=== PATIENT | male | born 2000 | race Caucasian/White ===

== ENCOUNTER → 2018-06-27 15:14 | Emergency (ER) | payer OTHER ==
[2018-06-27 15:54] VITALS: BP 119/77
--- NOTE | 2018-06-30 01:20 | PN ---
Progress Note - Progress Note Date of Service: 06/30/18 Note: This pt left without being seen.
== END | disposition left against medical advice (07) ==
LOC: ED 15:14
DX: S09.90XA Unspecified injury of head, initial encounter (principal); X58.XXXA Exposure to other specified factors, initial encounter; Y92.9 Unspecified place or not applicable; Z53.21 Procedure and treatment not carried out due to patient leaving prior to being seen by health care provider

== ENCOUNTER 2018-06-28 12:29 | Emergency (ER) | payer SELFPAY ==
--- NOTE | 2018-06-28 12:52 | ED ---
Headache - HPI Summary HPI Summary: This patient is a 18 year old M presenting to [facility] with a chief complaint of RAINEY after head injury that began on 06-25-18. The patient rates the pain 2/10 in severity, describes it as throbbing, and being worse in the morning. Symptoms aggravated by nothing. Symptoms alleviated by spontaneous resolution throughout the day. Patient reports photophobia, 2 episodes of epistaxis, as well as nausea. Patient denies ear discharge and visual changes. Pt states on 06-25-18 he was getting something out of his closet when a heavy bin fell. In an attempt to dodge the falling bin, he hit the back of his head on the corner of his closet. The bin did not hit him. He hit his right posterior occiput and it bled for 20 minutes but has stopped, he states this area is vineyard tender to palpation. He states he called [facility] after he began having increasing RAINEY and fuzzy vision with laptop use over 2 hours, and they suggested he come to the ED. Pt denied need for a work note. He does not take daily medications besides melatonin at night. Used inhaler for asthma over 6 days ago. NKDA - History Of Current Complaint Chief Complaint: EDHeadache Stated Complaint: HEAD INJURY Time Seen by Provider: 06/28/18 12:39 Hx Obtained From: Patient Onset/Duration: Sudden Onset, Started days ago, Still Present Initially Headache Was: Moderate Currently Pain Is: Current Pain Scale(0-10)= - 2 Timing: Constant Character: Throbbing Location of Headache: Occipital - right posterior Aggravating Factor: Nothing Allevating Factors: Other (Noted In Comments) - spontaneous resolution throughout the day Associated Signs And Symptoms: Negative - ear discharge and visual changes, Other (Noted In Comments) - epistaxis - Allergies/Home Medications Allergies/Adverse Reactions: Allergies Allergy/AdvReac Type Severity Reaction Status Date / Time No Known Allergies Allergy Verified 06/27/18 15:50 PMH/Surg Hx/FS Hx/Imm Hx Previously Healthy: No Endocrine/Hematology History: Denies: Hx Diabetes Respiratory History: Reports: Hx Asthma, Hx Pneumonia Neurological History: Denies: Hx CVA - Surgical History Surgery Procedure, Year, and Place: NONE Infectious Disease History: No Infectious Disease History: Denies: Traveled Outside the [place] in Last 30 Days - Family History Known Family History: Positive: Diabetes Negative: Other - CVA - Social History Occupation: Employed Part-time, Student Lives: Dormitory/Roommates Alcohol Use: Weekly Hx Substance Use: No Substance Use Type: Reports: None Hx Tobacco Use: No Smoking Status (MU): Never Smoked Tobacco Review of Systems Constitutional: Negative Positive: Photophobia. Negative: Blurred Vision, Drainage Positive: Epistaxis Positive: Nausea Positive: Other - pinpoint scab right posterior occiput, healed, not bleeding Positive: Headache Psychological: Normal All Other Systems Reviewed And Are Negative: Yes Physical Exam - Summary Physical Exam Summary: Appearance: Well-appearing, mild pain distress, well-nourished Skin: Warm, color reflects adequate perfusion, dry Head:Tender to palpation in right posterior occiput, pinpoint scab right posterior occiput, dry Eyes: Conjunctiva clear, EOMI, PERRL 2mm reactive and no nystagmus ENT: Normal inspection Neck: Supple, no nodes, no JVD Respiratory: Lungs clear, normal breath sounds, no respiratory distress Cardio: RRR, No murmur, pulses normal, brisk capillary refill Abdomen: Soft, nontender Bowel sounds: Present Musculoskeletal: Strength Intact/ROM intact, no calf tenderness, no edema. Psychological: Normal Neuro: A&O x3, CN II-XII intact, motor function 5/5, sensation intact, cerebellar normal Triage Information Reviewed: Yes Vital Signs On Initial Exam: Initial Vitals Temp Pulse Resp BP Pulse Ox 97.4 F 94 16 141/87 98 06/28/18 12:34 06/28/18 12:34 06/28/18 12:34 06/28/18 12:34 06/28/18 12:34 Vital Signs Reviewed: Yes - Kyle Coma Scale Best Eye Response: 4 - Spontaneous Best Motor Response: 6 - Obeys Commands Best Verbal Response: 5 - Oriented Coma Scale Total: 15 Diagnostics - Vital Signs Vital Signs Temp Pulse Resp BP Pulse Ox 06/28/18 12:34 97.4 F 94 16 141/87 98 - Laboratory Lab Statement: Any lab studies that have been ordered have been reviewed, and results considered in the medical decision making process. - CT CT Brain CT Interpretation Completed By: Radiologist - NO ACUTE INTRACRANIAL PATHOLOGY. ED physician has reviewed this radiology report. Re-Evaluation - Re-Evaluation First Eval Re-Evaluation Time: 13:40 Change: Unchanged Comment: No new sxs. Pt given results of CT. Agrees to discharge. Headache Course/Dx - Course Assessment/Plan: Pt presents with head injury with bleeding 3 days ago with continued RAINEY, nausea, difficulty focusing, epistaxis and photophobia. CT Brain reveals, per radiologist, NO ACUTE INTRACRANIAL PATHOLOGY. BP reverts to normal with rest in the ED, 117 systolic on DC. Given dc instructions for concussion and this is his second concussion in his lifetime. Patient will be discharged and follow up from [facility]. The patient was informed he needed medical clearance before beginning any physical activity. He was given a medical release from class and sports. The patient is agreeable with this plan. - Diagnoses Differential Diagnosis/HQI/PQRI: Epidural Hematoma, Subdural Hematoma, Other - skull fracture, intracerebral bleed, concussion Provider Diagnoses: Head injury, closed, with concussion Discharge - Sign-Out/Discharge Documenting (check all that apply): Patient Departure - dc back to [place] - Discharge Plan Condition: Stable Disposition: HOME Patient Education Materials: Concussion (ED) Forms: *Gen. Provider Communication, *School Release, *Work Release Referrals: [facility] - Guillermo FENG [Medical Doctor] - 3 Days Additional Instructions: Your CT did not show any abnormalities. You have been diagnosed with a concussion. You will need definite clearance and an exam by another physician before you can resume physical activity. Return to the ER if you have any new or worsening symptoms. - Billing Disposition and Condition Condition: STABLE Disposition: Home - Attestation Statements Document Initiated by Harley: Yes Documenting Scribe: Michele Loja Provider For Whom Harley is Documenting (Include Credential): Dr. Lian Castro MD Scribe Attestation: Michele Jones scribed for Dr. Lian Castro MD on 06/30/18 at 2324. Scribe Documentation Reviewed: Yes Provider Attestation: The documentation as recorded by the Michele bravo accurately reflects the service I personally performed and the decisions made by me, Dr. Lian Castro MD
--- NOTE | 2018-06-28 13:15 | RAD ---
HISTORY: head injury 06/25/18 w scalp lac, still w RAINEY,N COMPARISONS: None TECHNIQUE: Multiple contiguous axial CT scans were obtained of the head without intravenous contrast. FINDINGS: HEMORRHAGE/INFARCT: There is no hemorrhage or acute infarct. MASSES/SHIFT: There is no mass or shift. EXTRA-AXIAL SPACES: There are no extra-axial fluid collections. SULCI AND VENTRICLES: The sulci and ventricles are normal in size and position for the patient's stated age. CEREBRUM: There are no focal parenchymal abnormalities. BRAINSTEM: There are no focal parenchymal abnormalities. CEREBELLUM: There are no focal parenchymal abnormalities. VESSELS: The vessels are grossly normal. PARANASAL SINUSES: The paranasal sinuses are clear. ORBITS: The orbits are unremarkable. BONES AND SOFT TISSUE: No bone or soft tissue abnormalities are noted. OTHER: None IMPRESSION: NO ACUTE INTRACRANIAL PATHOLOGY.
[2018-06-28 13:52] VITALS: BP 117/72
== END 2018-06-28 13:52 | disposition home or self-care (01) ==
LOC: ED 12:29
DX: S06.0X9A Concussion with loss of consciousness of unspecified duration, initial encounter (principal); W01.198A Fall on same level from slipping, tripping and stumbling with subsequent striking against other object, initial encounter; J45.909 Unspecified asthma, uncomplicated; Y92.9 Unspecified place or not applicable
CPT/HCPCS: 70450; 99281

== ENCOUNTER 2018-11-28 19:54 | Emergency (ER) | payer OTHER ==
[2018-11-28 22:14] LABS: ABS Basophils 0 10^3/ul (0-0.2); ABS Eosinophils 0.1 10^3/ul (0-0.6); ABS Monocytes 0.5 10^3/ul (0-0.8); ABS Neutrophils 5.5 10^3/ul (1.5-7.7); ABS Nucleated RBC 0 10^3/ul; Eosinophil % 1.4 %; Hematocrit 45 % (36-46); Hemoglobin 15.6 g/dL (14.0-18.0); Lymphocyte % 24.5 %; Mean Corpuscular HGB Conc 35 g/dL (31-36); Mean Corpuscular Hemoglobin 30 pg (27-31); Mean Corpuscular Volume 88 fL (80-94); Mean Platelet Volume 7.1 fL (7.4-10.4); Nucleated Red Blood Cells % 0.1; Platelet Count 290 10^3/uL (150-450); Red Blood Count 5.16 10^6 /uL (4.18-5.48); Red Cell Distribution Width 12 % (10.5-15); White Blood Count 8.1 10^3/uL (3.5-10.8)
[2018-11-28 22:32] LABS: Albumin 4.4 g/dL (3.2-5.2); Albumin/Globulin Ratio 1.7 (1-3); BUN/Creatinine Ratio 14.7 (8-20); C Reactive Protein 2.72 mg/L (<8.01); Calcium 9.3 mg/dL (8.6-10.3); EGFR African American 122.3 (>60); EGFR Non-African American 101.1 (>60); Globulin 2.6 g/dL (2-4); Total Bilirubin 0.3 mg/dL (0.2-1.0)
[2018-11-28] MEDS ORDERED: NS 0.9% 1000 ML** 1,000 ML IV ONE (23:28)
--- NOTE | 2018-11-28 23:35 | ED ---
GI/ HPI - HPI Summary HPI Summary: 18-year-old male presents with rectal bleed today. He states he's been trying to have a bowel movement it has just been mucous and blood. He states the past week he has been having diarrhea. He did have nausea but that has since resolved. No fevers. He admits to lower abdominal pain. no diarrhea today. No recent travel. Did not eat anything different. Has no medical conditions. No family history of ulcerative colitis or crohns. No change in the pain after a bowel movement. did have respiratory infection couple weeks ago. No flank pain. No urinary symptoms. has been having anal sex. - History of Current Complaint Chief Complaint: EDAbdPain Time Seen by Provider: 11/28/18 23:08 Stated Complaint: BLOOD AND MUCUS IN DIARRHEA PER PT Pain Intensity: 0 - Allergy/Home Medications Allergies/Adverse Reactions: Allergies Allergy/AdvReac Type Severity Reaction Status Date / Time No Known Allergies Allergy Verified 06/27/18 15:50 Home Medications: Home Medications NK [No Home Medications Reported] 11/29/18 [History Confirmed 11/29/18] PMH/Surg Hx/FS Hx/Imm Hx Endocrine/Hematology History: Denies: Hx Diabetes Respiratory History: Reports: Hx Asthma, Hx Pneumonia Neurological History: Denies: Hx CVA Psychiatric History: Reports: Other Psychiatric Issues/Disorders - trouble sleeping - Surgical History Surgery Procedure, Year, and Place: NONE - Immunization History Date of Tetanus Vaccine: utd Date of Influenza Vaccine: none Infectious Disease History: No Infectious Disease History: Reports: Traveled Outside the [place] in Last 30 Days - [place] - Family History Known Family History: Positive: Diabetes Negative: Other - CVA - Social History Alcohol Use: Weekly Hx Substance Use: No Substance Use Type: Reports: None Hx Tobacco Use: No Smoking Status (MU): Never Smoked Tobacco Review of Systems Negative: Fever Negative: Chest Pain Negative: Shortness Of Breath Positive: Abdominal Pain, Diarrhea. Negative: Vomiting, Nausea All Other Systems Reviewed And Are Negative: Yes Physical Exam Triage Information Reviewed: Yes Vital Signs On Initial Exam: Initial Vitals Temp Pulse Resp BP Pulse Ox 98.6 F 90 18 122/78 98 11/28/18 20:07 11/28/18 20:07 11/28/18 20:07 11/28/18 20:07 11/28/18 20:07 Vital Signs Reviewed: Yes Appearance: Positive: Well-Appearing Skin: Positive: Warm, Dry Head/Face: Positive: Normal Head/Face Inspection Eyes: Positive: Normal, Conjunctiva Clear ENT: Positive: Pharynx normal Respiratory/Lung Sounds: Positive: Clear to Auscultation, Breath Sounds Present Cardiovascular: Positive: Normal, RRR Abdomen Description: Positive: Soft, Other: - tenderness LLQ Bowel Sounds: Positive: Present Musculoskeletal: Positive: Normal Neurological: Positive: Normal Psychiatric: Positive: Normal Diagnostics - Vital Signs Vital Signs Temp Pulse Resp BP Pulse Ox 11/28/18 20:07 98.6 F 90 18 122/78 98 - Laboratory Lab Results: Lab Results 11/28/18 11/28/18 11/28/18 Range/Units 22:08 22:08 22:08 WBC 8.1 (3.5-10.8) 10^3/uL RBC 5.16 (4.18-5.48) 10^6 /uL Hgb 15.6 (14.0-18.0) g/dL Hct 45 (36-46) % MCV 88 (80-94) fL MCH 30 (27-31) pg MCHC 35 (31-36) g/dL RDW 12 (10.5-15) % Plt Count 290 (150-450) 10^3/uL MPV 7.1 L (7.4-10.4) fL Neut % (Auto) 68.1 % Lymph % (Auto) 24.5 % [place] % (Auto) 5.6 % Eos % (Auto) 1.4 % Baso % (Auto) 0.4 % Absolute Neuts (auto) 5.5 (1.5-7.7) 10^3/ul Absolute Lymphs (auto) 2.0 (1.0-4.8) 10^3/ul Absolute Monos (auto) 0.5 (0-0.8) 10^3/ul Absolute Eos (auto) 0.1 (0-0.6) 10^3/ul Absolute Basos (auto) 0 (0-0.2) 10^3/ul Absolute Nucleated RBC 0 10^3/ul Nucleated RBC % 0.1 Sodium 139 (135-145) mmol/L Potassium 4.0 (3.5-5.0) mmol/L Chloride 103 (101-111) mmol/L Carbon Dioxide 29 (22-32) mmol/L Anion Gap 7 (2-11) mmol/L BUN 14 (6-24) mg/dL Creatinine 0.95 (0.67-1.17) mg/dL Est GFR ( Amer) 122.3 (>60) Est GFR (Non-Af Amer) 101.1 (>60) BUN/Creatinine Ratio 14.7 (8-20) Glucose 106 H (70-100) mg/dL Lactic Acid 0.9 (0.5-2.0) mmol/L Calcium 9.3 (8.6-10.3) mg/dL Total Bilirubin 0.30 (0.2-1.0) mg/dL AST 195 H (13-39) U/L ALT 68 H (7-52) U/L Alkaline Phosphatase 68 (34-104) U/L C-Reactive Protein 2.72 (<8.01) mg/L Total Protein 7.0 (6.4-8.9) g/dL Albumin 4.4 (3.2-5.2) g/dL Globulin 2.6 (2-4) g/dL Albumin/Globulin Ratio 1.7 (1-3) Lipase 36 (11.0-82.0) U/L Result Diagrams: 11/28/18 22:08 11/28/18 22:08 Lab Statement: Any lab studies that have been ordered have been reviewed, and results considered in the medical decision making process. - CT abd CT Interpretation Completed By: Radiologist Re-Evaluation - Re-Evaluation First Eval Re-Evaluation Time: 14:00 Change: Unchanged Comment: discussed results GIGU Course/Dx - Course Course Of Treatment: 18-year-old male presents with rectal bleed today. He states he's been trying to have a bowel movement it has just been mucous and blood. He states the past week he has been having diarrhea. He did have nausea but that has since resolved. No fevers. He admits to lower abdominal pain. No recent travel. Did not eat anything different. Has no medical conditions. No family history of ulcerative colitis or crohns. No change in the pain after a bowel movement. did have respiratory infection couple weeks ago. No flank pain. No urinary symptoms. On exam has mild left lower quadrant tenderness. no blood seen on rectal exam. LFTs are elevated. White blood count normal. CRP normal. occults blood negative. h/h normal. urine shows hematuria. got CT with symptoms to make sure no colitis vs IBD. patient will be signed out to dr robertson pending CT for dispo. - Diagnoses Differential Diagnoses - Male: Colitis, Irritable Bowel Syndrome, Urinary Tract Infection Provider Diagnoses: Abdominal pain, Rectal bleed Discharge - Sign-Out/Discharge Documenting (check all that apply): Sign-Out Patient Signing out patient TO: Katherine Robertson - Discharge Plan Referrals: JACLYN Zamora [[email or web address], APPLICATION, OTHER] - Topher Purdy MD [Medical Doctor] -
[2018-11-29] MEDS ORDERED: Iohexol 300* (CONTRAST) 10 ML SDV IV ONE (00:53)
[2018-11-29 01:02] LABS: Urine Appearance Clear; Urine Bacteria Absent (Absent); Urine Bilirubin Negative (Negative); Urine Blood 2+ (Negative); Urine Color Yellow; Urine Glucose Negative (Negative); Urine Ketones Negative (Negative); Urine Nitrite Negative (Negative); Urine Protein Negative (Negative); Urine Red Blood Cell 2+(6-10/hpf) (Absent); Urine Specific Gravity 1.015 (1.010-1.030); Urine Urobilinogen Negative (Negative); Urine White Blood Cell Trace(0-5/hpf) (Absent)
--- NOTE | 2018-11-29 02:59 | ED ---
Progress - Progress Note Progress Note: This patient was signed out from RICHARD Mejias, to Dr. Robertson at 02:[address] abdomen/pelvis. CT abdomen/pelvis impression: No CT findings to correlate with patient's symptomatology. ED physician has reviewed this imaging report. The patient will be discharged. He is agreeable with this plan. Re-Evaluation - Re-Evaluation First Eval Re-Evaluation Time: 14:00 Change: Unchanged Comment: discussed results Course/Dx - Course Course Of Treatment: This patient was signed out from RICHARD Mejias, to Dr. Robertson at 02:30 11/29/[address] abdomen/pelvis. CT abdomen/pelvis impression: No CT findings to correlate with patient's symptomatology. ED physician has reviewed this imaging report. The patient will be discharged. He is agreeable with this plan. - Diagnoses Provider Diagnoses: Abdominal pain Discharge - Sign-Out/Discharge Documenting (check all that apply): Patient Departure - DC Patient Received Moderate/Deep Sedation with Procedure: No - Discharge Plan Condition: Stable Disposition: HOME Patient Education Materials: Abdominal Pain (ED) Referrals: JACLYN Zamora [[email or web address], APPLICATION, OTHER] - Topher Purdy MD [Medical Doctor] - (1-2 days) Additional Instructions: RETURN TO THE EMERGENCY DEPARTMENT FOR CHANGING OR WORSENING SYMPTOMS. FOLLOW UP WITH PCP IN 1-2 DAYS. - Billing Disposition and Condition Condition: STABLE Disposition: Home - Attestation Statements Document Initiated by Scribe: Yes Documenting Scribe: Eric Park Provider For Whom Harley is Documenting (Include Credential): Katherine Robertson MD Scribe Attestation: Eric Jones, scribed for Katherine Robertson MD on 11/29/18 at 0622. Scribe Documentation Reviewed: Yes Provider Attestation: The documentation as recorded by the Eric bravo accurately reflects the service I personally performed and the decisions made by Mekhi chambers MD Status of Scribe Document: Viewed
[2018-11-29 03:45] VITALS: BP 127/74
== END 2018-11-29 03:43 | disposition home or self-care (01) ==
LOC: ED 19:54
DX: R10.9 Unspecified abdominal pain (principal); K62.5 Hemorrhage of anus and rectum; R19.7 Diarrhea, unspecified
CPT/HCPCS: 36415; 74177; 80053; 81003; 81015; 82272; 83605; 83690; 85025; 86140; 87086; 99282; Q9967